=== PATIENT | female | born 1995 | race American Indian/Alaskan Native ===

== ENCOUNTER 2016-09-23 07:30 | Emergency (ER) | payer MEDICAID ==
[2016-09-23 07:41] VITALS: BP 115/72
[2016-09-23 08:18] LABS: Bacteria,Urine 2+ /HPF (Negative); Bilirubin,Urine NEG (Negative); Blood,Urine SM (Negative); Ketones,Urine NEG (Negative); Leukocyte Esterase,Urine NEG (Negative); Mucus,Urine FEW /HPF; Nitrite,Urine NEG (Negative); Protein,Urine <15 mg/dL mg/dL (Negative); Urobilinogen,Urine < 2.0 mg/dL (<2.0)
--- NOTE | 2016-09-23 08:29 | Emergency Department Report ---
HPI - General Chief Complaint: Abdominal Pain Time Seen by Provider: 09/23/16 08:25 - HPI HPI: 20-year-old -Chinese female with a past medical history of left ovarian cyst comes in for complaint of left ovarian cyst with pain. She reports that she is haven't left side pelvic pain. She reports that she is due for her. And this tends to happen prior to her period coming. Patient reports that she is followed by Dr. Armenta [facility] her pain is been going on for 2 days she does have an appointment on September 24 which is tomorrow for an office appointment as well as October 06 for an ultrasound appointment. Patient reports she has been taking ibuprofen 800 which just helped a little she has run out of the tramadol that he has given to her in the past. She reports that the tramadol seemed to help with the pain while taking the ibuprofen. Patient is requesting a refill on tramadol until she can see her [facility] [employer] [facility] provider. Patient denies any vaginal discharge she denies any vaginal bleeding she denies any dysuria she denies any fever or chills no nausea no vomiting. ED Past Medical Hx - Past Medical History Previous Medical History?: Yes Additional medical history: left ovarian cyst - Surgical History Past Surgical History?: Yes Additional Surgical History: - Social History Smoking Status: Never Smoker Substance Use Type: Non Opiate Pain, Prescribed - Medications Home Medications: Home Medications Medication Instructions Recorded Confirmed Last Taken Type traMADol [Ultram 50 MG tab] 50 mg PO Q6HR PRN #12 tablet 09/23/16 Unknown Rx ED Review of Systems ROS: Stated complaint: PAINFUL CYST Other details as noted in HPI Constitutional: denies: chills, fever Eyes: denies: eye pain, eye discharge, vision change ENT: denies: ear pain, throat pain Respiratory: denies: cough, shortness of breath, wheezing Cardiovascular: denies: chest pain, palpitations Endocrine: no symptoms reported Gastrointestinal: denies: abdominal pain, nausea, diarrhea Genitourinary: other (left side pelvic pain and pressure) Musculoskeletal: denies: back pain, joint swelling, arthralgia Neurological: denies: headache, weakness, paresthesias Psychiatric: denies: anxiety, depression Physical Exam - Physical Exam Vital Signs: Vital Signs 09/23/16 09/23/16 07:36 07:51 Temperature 98.7 F Pulse Rate 103 H Respiratory 16 16 Rate Blood Pressure 115/72 O2 Sat by Pulse 100 98 Oximetry General: GENERAL: Alert and oriented x3, no apparent distress, Normal Gait, atraumatic. HEAD: Head is normocephalic and a-traumatic. EYES: Extra ocular muscles are intact. Pupils are equal, round, and reactive to light and accommodation. MOUTH:Mouth is well hydrated and without lesions. Tonsils nonerythematous or swollen, Uvula midline, Tongue not elevated. Mucous membranes are moist. Posterior pharynx clear, no exudate or lesions. Patent airways. NECK: Supple. Non edematous, No carotid bruits. No lymphadenopathy or thyromegaly. LUNGS: Symetrical with respiration, No wheezing, no rales or crackles, CTAB. HEART: S1, S2 present, regular rate and rhythm without murmur, no rubs, no gallops. ABDOMEN: No organomegaly was noted,Positive bowel sounds, soft, and non- distended. . tender to palpation on left lower quadrant, NO CVA tenderness. EXTREMITIES/MUSCULOSKELETAL: No cyanosis, clubbing, rash, lesions or edema. Full ROM bilaterally. UE/LE Pulses 2+ bilaterally. LE and UE 5+ strength bilaterally NEUROLOGIC: No focal Deficit, Cranial nerves II through XII are grossly intact. No loss of sensation, No facial droop, Negative rhomberg. PSYCHIATRIC: Mood is congruent with affect, SKIN: Warm and dry, No lesions, No ulceration or induration present ED Course Vital Signs 09/23/16 09/23/16 07:36 07:51 Temperature 98.7 F Pulse Rate 103 H Respiratory 16 16 Rate Blood Pressure 115/72 O2 Sat by Pulse 100 98 Oximetry ED Medical Decision Making - Medical Decision Making Discussed with patient that we will refill her tramadol for pain. Discussed with patient that her urine test was negative and her urinalysis was unimpressive. Discussed patient to please keep her appointment with Dr. Armenta [employer] [facility] provider for made the first as well as keep her ultrasound appointment for October 06. Also discussed patient's to continue taking the ibuprofen and take the tramadol for pain management of her ovary pain. Patient verbalized understanding. Critical care attestation.: If time is entered above; I have spent that time in minutes in the direct care of this critically ill patient, excluding procedure time. ED Disposition Clinical Impression: Pelvic pain Disposition: DISCHARGED TO HOME OR SELFCARE Is pt being admited?: No Does the pt Need Aspirin: No Condition: Stable Instructions: Abdominal Pain (ED) Additional Instructions: Please keep your appointment with Dr. Armenta for a first and October 06. Take her ibuprofen and tramadol as prescribed. Prescriptions: traMADol [Ultram 50 MG tab] 50 mg PO Q6HR PRN #12 tablet PRN Reason: Pain Referrals: PRIMARY CARE, [Primary Care Provider] - 3-5 Days Forms: Work/School Release Form(ED)
== END 2016-09-23 08:50 | disposition home or self-care (01) ==
LOC: ED 07:30
DX: R10.2 Pelvic and perineal pain (principal)
CPT/HCPCS: 81001; 81025; 99283

== ENCOUNTER 2017-10-15 13:10 | Emergency (ER) | payer MEDICAID | END 2017-10-15 13:11 | disposition left against medical advice (07) | LOC: ED 13:10 | DX: G89.18 Other acute postprocedural pain (principal); Z53.21 Procedure and treatment not carried out due to patient leaving prior to being seen by health care provider ==